=== PATIENT | female | born 1975 | race Caucasian/White ===

== ENCOUNTER 2017-01-25 10:25 | Day surgery (SDC) | payer BC ==
[2017-01-24 12:26] VITALS: BMI 24.3
[2017-01-25] MEDS ORDERED: Bupivacaine HCl 0.5%/Epinephrine 1:200,000/PF 30 ml Vial ONE (11:45)
[2017-01-25] MEDS ORDERED: Midazolam HCl 2 mg/2 ml Vial ONE (12:00)
[2017-01-25] MEDS ORDERED: Fentanyl 100 MCG/2 ML VIAL ONE (12:11)
[2017-01-25] MEDS ORDERED: Ondansetron HCl/PF 4 MG/2 ML Vial ONE (12:15)
[2017-01-25] MEDS ORDERED: Dexamethasone 20 MG/5 ML VIAL ONE (12:15)
[2017-01-25] MEDS ORDERED: Lidocaine 2% PF 10 ML AMP (For Epidural Use) ONE (12:15)
[2017-01-25] MEDS ORDERED: Propofol 200 MG/20 ML VIAL ONE ×2 (12:15)
[2017-01-25] MEDS ORDERED: Ketorolac Tromethamine 30 MG/ML VIAL ONE (12:15)
[2017-01-25] MEDS ORDERED: Glycopyrrolate 0.2 MG/ML 5 ML SYRINGE ONE (12:15)
[2017-01-25] MEDS ORDERED: Morphine Sulfate 2 MG/ML SYRINGE SLOW IVP PRN (13:48)
[2017-01-25] MEDS ORDERED: Promethazine HCl 25 MG/ML VIAL SLOW IVP PRN (13:48)
[2017-01-25] MEDS ORDERED: HYDROmorphone 2 MG/ML VIAL SLOW IVP PRN (13:48)
[2017-01-25] MEDS ORDERED: Promethazine HCl 25 MG/ML VIAL IM PRN (13:48)
[2017-01-25] MEDS ORDERED: Ondansetron HCl/PF 4 MG/2 ML Vial IVP PRN (13:48)
[2017-01-25] MEDS ORDERED: Meperidine HCl/PF 25 MG/ML VIAL SLOW IVP PRN (13:48)
[2017-01-25] MEDS ORDERED: Labetalol HCl 100 MG/20 ML VIAL ONE (16:11)
--- NOTE | 2017-01-25 17:41 | OP ---
DATE OF OPERATION: 01/25/2017 PREOPERATIVE DIAGNOSIS: Family history of ovarian cancer. POSTOPERATIVE DIAGNOSIS: Family history of ovarian cancer. PROCEDURE PERFORMED: Laparoscopic single site risk reducing bilateral salpingectomy. ANESTHESIA: General endotracheal. ESTIMATED BLOOD LOSS: 20 mL INTRAVENOUS FLUIDS: One liter crystalloid. URINE OUTPUT: 100 mL of clear urine. PATHOLOGY: Bilateral fallopian tubes. COMPLICATIONS: None. DRAINS: None. FINDINGS: Normal intra-abdominal survey, normal appearing uterus, ovaries and fallopian tubes bilat erally. OPERATIVE TECHNIQUE: The patient was taken to the operating room where general anesthesia was obtai angus without difficulty. She was prepped and draped in a sterile fashion in the dorsal lithotomy pos ition. A speculum was placed in the vagina and a single-toothed Hulka manipulator was placed in the cervix. The speculum was removed and the legs were placed in low lithotomy. Attention was turned to the abdomen. A 5 mm umbilical skin incision was made and a Veress needle was passed into the abd omen noting an opening pressure of 0 mmHg. Pneumoperitoneum was obtained. The Veress needle was th en removed and a 5 mm trocar was passed into the abdomen and confirmed placement with the camera. A bdominal survey was then performed and Trendelenburg was obtained. The umbilical incision was then extended to approximately 1.5-2 cm as well as the fascial incision. The 5 mm trocar was removed and a mini GelPOINT was opened. The mini Jaylon was placed into the incision and then the 12 and two 5 trocars were placed into the gel pad and this was fixed on top of the Jaylon. Pneumoperitoneum was reestablished. The 30 degree scope was used and a grasper was used to grasp and elevate the right fallopian tube. The mesosalpinx was sequentially cauterized and transected until the uterine cornua was met. The fallopian tube was then clamped across, cauterized and transected and removed into th e posterior cul-de-sac. The left fallopian tube was then grasped and elevated, and the mesosalpinx was sequentially cauterized and transected with the LigaSure and once it met at the uterus medially was clamped across, cauterized and transected off of the uterine attachment. The fallopian tubes we re then removed from the abdomen and labeled appropriately. Suction irrigation was performed of the pelvis. Low pressure check was performed and hemostasis was noted to be excellent. The instrument s were removed from the abdomen. The Jaylon was also removed from the abdominal incision. The fasc ia of the umbilical incision was reapproximated with 0 Vicryl in a running fashion with excellent re approximation and the 30 mL of 0.5% Marcaine with epinephrine was infiltrated into the umbilical inc ision at that time and the skin was closed with 4-0 Monocryl in a subcuticular fashion and Dermabond was applied. The PlayFirstlka manipulator was then removed out of the patient. There was some excessive bleeding noted from the cervical site of the manipulator. Pressure was held; however, continue blee ding noted. The silver nitrate was applied; however, this was unsuccessful. Therefore, a 2-0 Vicry l was used to place a [id number] over this area and hemostasis was noted to be excellent. All instruments were removed from the vagina. The patient tolerated the procedure well. Sponge, lap, a nd needle counts were correct x2. The patient was taken to recovery room in stable condition. [facility] does not receive antibiotics prior to the procedure and the Patrick catheter was removed from the patient prior to leaving the OR.
== END 2017-01-25 17:00 | disposition home or self-care (01) ==
LOC: SDC 10:25
PROVIDERS: ATTEND Student in an Organized Health Care Education/Training Program
PROC: 0UT74ZZ Resection of Bilateral Fallopian Tubes, Percutaneous Endoscopic Approach (ICD-10-PCS; principal; 2017-01-25)
DX: Z40.02 Encounter for prophylactic removal of ovary(s) (principal); I42.9 Cardiomyopathy, unspecified; I35.1 Nonrheumatic aortic (valve) insufficiency; J45.909 Unspecified asthma, uncomplicated; Z98.84 Bariatric surgery status; Z96.22 Myringotomy tube(s) status; Z88.8 Allergy status to other drugs, medicaments and biological substances; Z80.41 Family history of malignant neoplasm of ovary; Z83.3 Family history of diabetes mellitus; Z82.49 Family history of ischemic heart disease and other diseases of the circulatory system; Z79.818 Long term (current) use of other agents affecting estrogen receptors and estrogen levels; Z79.899 Other long term (current) drug therapy
CPT/HCPCS: 88302; J0670; J1100; J1170; J1885; J2001; J2250; J2405; J2704; J3010

== ENCOUNTER 2018-01-11 15:41 | Outpatient (CLI) | payer BC | END 2018-01-11 15:42 | disposition home or self-care (01) | LOC: BICMAMMO 15:41 | PROVIDERS: ATTEND Student in an Organized Health Care Education/Training Program | DX: Z12.31 Encounter for screening mammogram for malignant neoplasm of breast (principal) | CPT/HCPCS: 77063; 77067 ==

== ENCOUNTER 2018-05-18 08:01 | Outpatient (CLI) | payer BC ==
[2018-05-18 08:25] LABS: ALT (SGPT) 12 U/L (8-55); AST (SGOT) 13 U/L (5-34); Alkaline Phosphatase 48 U/L (40-150); Anion Gap 13 mmol/L (10-20); BUN (Urea Nitrogen) 13 mg/dL (7.0-18.7); Bilirubin, Total 0.4 mg/dL (0.2-1.2); Calc. Creatinine Clearance 0 mL/min (70-130); Calcium 9.4 mg/dL (7.8-10.44); Carbon Dioxide 28 mmol/L (22-29); Chloride 104 mmol/L (98-107); Estimated GFR-MDRD 81; Globulin 3.1 g/dL (2.4-3.5); Glucose 97 mg/dL (70-105); Potassium 4.3 mmol/L (3.5-5.1); Protein, Total 7.1 g/dL (6.0-8.3); Sodium 141 mmol/L (136-145)
== END 2018-05-18 08:02 | disposition home or self-care (01) ==
LOC: SCSLAB 08:01
PROVIDERS: ATTEND Internal Medicine Cardiovascular Disease
DX: I10 Essential (primary) hypertension (principal)
CPT/HCPCS: 36415; 80053